=== PATIENT | male | born 1930 | race Caucasian/White ===

== ENCOUNTER 2016-11-10 10:32 | Day surgery (SDC) | payer OTHER, BC ==
[2016-10-26 14:20] VITALS: BMI 27.0
--- NOTE | 2016-10-26 14:56 | PAT Medication Instructions ---
Service Date Oct 26, 2016. Current Home Medication List Aspirin Enteric Coated (Ecotrin Or Generic *), 81 MG PO BID Carvedilol (Coreg *), 3.125 MG PO BID Diazepam (Valium), 5 MG PO HS Fluvastatin Ext Rel (Lescol Ext Rel), 80 MG PO QPM Lisinopril (Zestril), 40 MG PO BID Metformin Hcl (Glucophage), 500-1,000 MG PO BID Naproxen (Aleve), 220 MG PO PRN [Allerest 24 Hr], 1 TAB PO HS [Nasal Lavonia], 1 SPRAY [place] PRN Medication Instructions For Your Scheduled Surgery - Hold per surgeon's instructions: Naproxen (Aleve), 220 MG PO PRN Naproxen (Aleve), 220 MG PO PRN Aspirin Enteric Coated (Ecotrin Or Generic *), 81 MG PO BID - Hold the following medications 48 hours prior to surgery: Metformin Hcl (Glucophage), 500-1,000 MG PO BID - Hold the following medications 24 hours prior to surgery: Lisinopril (Zestril), 40 MG PO BID - Take the following medications the morning of surgery with a sip of water OTHERWISE NOTHING TO EAT OR DRINK AFTER MIDNIGHT: [Nasal Lavonia], 1 SPRAY [place] PRN Carvedilol (Coreg *), 3.125 MG PO BID - Take the following medications as scheduled the night before surgery: [Nasal Lavonia], 1 SPRAY [place] PRN [Allerest 24 Hr], 1 TAB PO HS Carvedilol (Coreg *), 3.125 MG PO BID Diazepam (Valium), 5 MG PO HS Fluvastatin Ext Rel (Lescol Ext Rel), 80 MG PO QPM If you have any questions please call us at [phone] or [phone] or [phone]
--- NOTE | 2016-10-26 15:44 | DIAGNOSTIC IMAGING REPORT ---
CHEST 2 VIEWS ROUTINE CLINICAL HISTORY: Preoperative chest COMPARISON STUDY: 04/23/2010 FINDINGS: There are postsurgical changes of midline sternotomy. The heart is normal in size. There is aortic valve replacement. There is persistent aortic tortuosity/ectasia. There is no failure. There is no focal pulmonary consolidation. There are no pleural effusions.[ IMPRESSION: No change the prior study. No acute findings. Electronically signed by: Moustapha Calix M.D. 10/26/2016 3:42 PM Dictated Date/Time: 10/26/2016 3:42 PM
[2016-10-26 15:55] LABS: BASO % 0.3 %; BASO ABS # 0.02 K/uL (0-0.2); COMPLETE YES; EOS % 2.7 %; HEMATOCRIT 37.8 % (42-52); IG% 0.1 %; LYMPH % 21.5 %; LYMPH ABS # 1.52 K/uL (1.2-3.4); MEAN CELL VOLUME 83.3 fL (80-100); MEAN CORPUSCULAR HEMOGLOBIN 28.9 pg (25-34); MEAN CORPUSCULAR HGB CONC 34.7 g/dl (32-36); MONO % 10.8 %; NEUT % 64.6 %; PLATELET COUNT 256 K/uL (130-400); RED BLOOD COUNT 4.54 M/uL (4.7-6.1); WHITE BLOOD COUNT 7.06 K/uL (4.8-10.8)
[2016-10-26 16:04] LABS: URINE APPEARANCE CLEAR (CLEAR); URINE BILIRUBIN NEG (NEG); URINE COLOR DK YELLOW; URINE NITRITE NEG (NEG); URINE SPECIFIC GRAVITY 1.026 (1.000-1.030); UROBILINOGEN NEG (NEG); ZZUR CULT IF INDIC CLEAN CATCH NO
[2016-10-26 16:07] LABS: MANUAL MICROSCOPIC REQUIRED? NO; REVIEW REQ? NO
[2016-10-26 16:09] LABS: INR 1.1 (0.9-1.1); PROTHROMBIN TIME (PATIENT) 11.6 SECONDS (9.0-12.0)
[2016-10-26 16:46] LABS: BUN/CREATININE RATIO 21.3 (10-20); CALCIUM 8.7 mg/dl (8.5-10.1); CREATININE 0.76 mg/dl (0.60-1.40); POTASSIUM 4.2 mmol/L (3.5-5.1)
--- NOTE | 2016-11-09 16:00 | HISTORY & PHYSICAL EXAMINATION ---
DATE OF ADMISSION: 11/10/2016 HISTORY OF PRESENT ILLNESS: The patient is a 5 foot 9, 181 pound, BMI 26.73, white male, 86 years old who presents with recent onset of rupture of his rotator cuff. He presents with complaints of pain and inability to lift his arm since his fall. He denies other shoulder injuries in the past. He has never had difficulty with the shoulder previously. 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 FAMILY HISTORY: Otherwise unremarkable. SOCIAL HISTORY: The patient denies history of alcohol use, smoking or recreational drug use. ALLERGIES: No known medical allergies are noted. MEDICATIONS: Aspirin 81 mg p.o. daily, Flovent 44 mcg aerosol inhaler as needed, carvedilol 3.25 mg orally 2 times daily, lisinopril 40 mg p.o. daily, diazepam 5 mg twice a day, metformin 500 mg p.o. every day with morning and evening meals. PAST MEDICAL HISTORY: Otherwise unremarkable. See history of present illness for pertinent positives. PHYSICAL EXAMINATION: GENERAL: Reveals a very pleasant 86-year-old white male with acute onset of a rupture of his rotator cuff, inability to lift his arm or abduct his arm and he presents for surgical intervention after failing attempts at physical therapy. HEAD, EYES, EARS, NOSE, AND THROAT: Otherwise unremarkable, atraumatic, normocephalic. HEART: Irregular at 72 beats per minute. No murmurs noted. LUNGS: Clear. No rales, rhonchi, or wheezes noted. ABDOMEN: Soft, nontender, nondistended. Bowel sounds are present in all 4 quadrants. RECTAL: Not performed. MUSCULOSKELETAL EXAMINATION: Consistent with that of a pleasant 86-year-old white male in excellent health and condition otherwise with complete acute rupture of his rotator cuff. He presents for arthroscopic rotator cuff repair, postoperative pain management, DVT prophylaxis, antibiotics as necessary.
[~2016-11-10] VITALS: Ht 175.3 cm; Wt 82.7 kg
--- NOTE | 2016-11-10 10:23 | History & Physical Bridge Note ---
H&P Re-Evaluation Bridge Note: I have examined the patient, reviewed the History & Physical and in the interval since the performance of the History & Physical I have noted the following changes of clinical significance: No changes noted
[~2016-11-10 10:32] MED LIST: ALLEREST PO; ASPEC81 PO; CEFAZOLIN 2000 MG/60 ML D5W 60 ML IV SCH; CRG3125 PO; DIAZ-165 PO; FLUV80TA PO; LACTATED RINGER'S 1000ML 1,000 ML IV SCH; LISI40TA PO; METF-384 PO; NAPR1TAB9 PO; NASAL SPRAY NAE; ROPIVACAINE 0.5% 5 MG/ML 30 ML VIAL ONE
[2016-11-10] MEDS ORDERED: LIDOCAINE HCL 2% 2 ML VIAL (20MG/ML) ONE ×2 (11:24→12:22)
[2016-11-10] MEDS ORDERED: ONDANSETRON INJ 2 MG/ML 2 ML VIAL ONE (11:24)
[2016-11-10] MEDS ORDERED: PROPOFOL IV EMULSION 10 MG/ML 20 ML VIAL IV ONE (11:24)
[2016-11-10] MEDS ORDERED: FENTANYL CITRATE INJ 50 MCG/1 ML 2 ML VIAL ONE (11:25)
[2016-11-10] MEDS ORDERED: MIDAZOLAM HCL 1 MG/ML 2ML VIAL ONE (11:25)
[2016-11-10 11:28] VITALS: BP 121/76; PULSE 67; TEMP 36.7; O2SAT 97; Ht 175.3 cm; Wt 82.7 kg
--- NOTE | 2016-11-10 12:15 | History & Physical Bridge Note ---
H&P Re-Evaluation Bridge Note: I have examined the patient, reviewed the History & Physical and in the interval since the performance of the History & Physical I have noted the following changes of clinical significance: The left shoulder is the correct shoulder for rotator cuff repair and distal clavicle spur excision
[2016-11-10] MEDS ORDERED: ONDANSETRON INJ 2 MG/ML 2 ML VIAL IV PRN ×2 (12:45→14:00)
[2016-11-10] MEDS ORDERED: HYDROmorphone INJ 1 MG/ML SYR IV PRN (12:45)
[2016-11-10] MEDS ORDERED: EpHEDrine SULFATE INJ 50 MG/ML AMP IV PRN (12:45)
[2016-11-10] MEDS ORDERED: ATROPINE SULFATE 0.1 MG/ML 5ML SYR IV PRN (12:45)
[2016-11-10] MEDS ORDERED: PHENYLEPHRINE 100MCG/ML 5ML SYR ONE (13:12)
[2016-11-10] MEDS ORDERED: NEOSTIGMINE METHYLSULFATE 5 MG/5 ML SYR ONE (13:12)
[2016-11-10] MEDS ORDERED: EpHEDrine SULFATE 50MG/5ML SYR ONE (13:12)
[2016-11-10] MEDS ORDERED: GLYCOPYRROLATE INJ 0.2 MG/ML VIAL ONE (13:12)
[2016-11-10] MEDS ORDERED: ROCURONIUM BROMIDE 10 MG/ML 5 ML VIAL ONE (13:12)
--- NOTE | 2016-11-10 13:52 | OPERATIVE REPORT ---
DATE OF OPERATION: 11/10/2016 PREOPERATIVE DIAGNOSIS: Torn rotator cuff, left shoulder. POSTOPERATIVE DIAGNOSIS: Torn rotator cuff, left shoulder, with impingement syndrome. PROCEDURE: Arthroscopy, arthroscopic acromioplasty, arthroscopic rotator cuff repair utilizing 4.5 mm double-loaded Healicoil anchor. SURGEON: Dr. Bean. GL[employer]OL BLANKET MACHINE FEEDER: BARTOLO Sandhu, who was necessary for arm positioning, suture management, and wound closure. HISTORY: The patient presents as a very pleasant 86-year-old male with the above complaints with sudden onset of weakness of his rotator cuff. He had previously never had problems with his shoulder. He had gone through physical therapy, presents with an acute tear of his rotator cuff which has been nonresponsive to conservative management. He is having night pain. Injections did not help nor did physical therapy, and for this reason, even at his advanced age of 86, decision was made for rotator cuff repair. At the time of surgery, the above findings were noted. PROCEDURE IN DETAIL: After proper prepping and draping of the left shoulder region, standard posterior and anterior portals were created. Arthroscopic examination revealed there to be evidence of an acute tear of the rotator cuff at supraspinatus tendon insertion. 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 The rotator cuff was subsequently mobilized. Anterior inferior acromioplasty was performed. The labrum was debrided all to a nice smooth stable margin. Rotator cuff was repaired back to a bed of bleeding bone utilizing a 4.5 mm double-loaded Healicoil anchor. The skin incisions were closed with 4-0 nylon. Sterile compression dressing was placed. The patient was taken to recovery room in stable condition. I attest to the content of the Intraoperative Record and any orders documented therein. Any exceptio ns are noted below.
[2016-11-10] MEDS ORDERED: ACETAMINOPHEN 325 MG TAB PO PRN (14:00)
[2016-11-10] MEDS ORDERED: MoRPHine SULFATE 2 MG/ML CARP IV PRN (14:00)
[2016-11-10] MEDS ORDERED: OXYCODONE HCL IR 5 MG TAB (IMMEDIATE RELEASE) PO PRN ×2 (14:00)
[2016-11-10] MEDS ORDERED: OXYC-57 PO (14:07)
--- NOTE | 2016-11-10 14:13 | Discharge Instructions ---
Discharge Instructions Date of Service Nov 10, 2016. Visit Reason for Visit: Left Shoulder Osteoarthritis, Rotator Cuff Tear Discharge Discharge Diagnosis / Problem: Left Shoulder Djd; Left Rotator Cuff Tear Discharge Goals Goal(s): Decrease discomfort, Improve function Activity Recommendations Activity Limitations: per Instructions/Follow-up section Anesthesia . Post Anesthesia Instructions: If you have had General Anesthesia or IV Sedation: * Do not drive today. * Resume driving when surgeon permits. * Do not make important decisions or sign legal documents today. * Call surgeon for: 1. Temperature elevations greater than 101 degrees F. 2. Uncontrollable pain. 3. Excessive bleeding. 4. Persistent nausea and vomiting. 5. Medication intolerance (nausea, vomiting or rash). * For nausea and vomiting use only clear liquids such as: tea, soda, bouillon until nausea subsides, then gradually increase diet as tolerated. * If you have any concerns or questions, call your surgeon's office. If physician is unavailable and it is an emergency, call 911 or go to the nearest emergency room. . Instructions / Follow-Up Instructions / Follow-Up RESUME YOU [facility]MIN TOMORROW. 11/10/16 [facility] [place] DISCHARGE INSTRUCTIONS: ROTATOR CUFF REPAIR SELF CARE INSTRUCTIONS A. You are permitted to loosen your sling/immobilizer to move your elbow, wrist , and hand to prevent stiffness. You should use your well arm (good arm) to assist the operated extremity when trying to raise the arm away from the body, hygiene purposes. Do NOT actively try to use/engage your shoulder muscles in operative arm at this time. You should NOT do overhead activity, lifting, or attempt to reach behind your back. B. You ARE to start Physical Therapy upon discharge. You will be provided a prescription for therapy with specific restrictions, if needed, at time of discharge. C. At 48 hours post-operatively, you may change your dressing. (Leave white steri-strips intact if present). Use band-aids and change daily. You are allowed to shower at this time and get the incision area wet, but DO NOT soak or submerge incision area in water. (No baths, swimming pools, hot tubs) D. Do NOT apply soap or any ointment/lotions directly over incision. E. You may use ice as needed to operative shoulder SPECIAL CARE INSTRUCTIONS: VERY IMPORTANT TO READ AND REVIEW A. There are a few signs you need to watch for after you are home. Call [facility] at [phone] if you experience any of the following: a. Increased severe shoulder pain. Some pain is expected especially when you exercise b. Increased swelling in your shoulder or arm; pain or swelling in either upper extremity. (Note: swelling and stiffness is normal and expected for several weeks post op, depending on type of shoulder surgery you had). c. Any fluid or drainage from the incision; redness of the incision. d. Shortness of breath or chest pain. B. Please call [facility] at [phone] if you have any questions or concerns about your operation or recovery. C. Call your physician if: a. Temperature is greater than 101 degrees (F). b. Pain is not relieved by prescribed pain medications. c. Increase drainage or redness from incision. d. Unanswered questions or concerns. D. Pain Medication: a. You will be prescribed pain medication upon discharge that should last till your first post-operative appointment. b. If you experience nausea and/or skin rash, discontinue this medication and contact our office for an alternative medication. c. Caution- narcotic pain medication can cause constipation. FOLLOW UP VISIT: Please call [facility] at [phone] to schedule a follow up appointment 10-14 days from your surgery date. Diet Recommendations Recommended Home Diet: resume previous diet Procedures Procedures Performed: Left Shoulder Arthroscopy With Rotator Cuff Repair, Debridement of Labral Tear Pending Studies Studies pending at discharge: no Medical Emergencies . Who to Call and When: Medical Emergencies: If at any time you feel your situation is an emergency, please call 911 immediately. . Non-Emergent Contact Non-Emergency issues call your: Surgeon Call Non-Emergent contact if: temperature is above 101.5, your pain is not controlled, your pain is worsening, wound has increased drainage, wound has increased redness . . "Provider Documentation" section prepared by Justino Leon. . [place] Drug Monitoring Program Search Results: patient reviewed within database, no issues identified
--- NOTE | 2016-11-10 14:54 | Anesthesiology Progress Note ---
Anesthesia Post Op Note Date & Time Nov 10, 2016 at 14:53 Vital Signs Pain Intensity: 0 Vital Signs Past 12 Hours Date Time Temp Pulse Resp B/P Pulse Ox O2 Delivery O2 Flow Rate FiO2 11/10/16 14:45 60 20 139/80 99 Nasal Cannula 3 11/10/16 14:35 36.3 20 143/69 99 Nasal Cannula 3 11/10/16 14:25 64 18 147/76 99 Nasal Cannula 3 11/10/16 14:15 65 16 151/89 99 Mask 5 11/10/16 14:05 61 16 147/89 99 Mask 10 11/10/16 13:58 36.0 63 16 134/81 99 Mask 10 11/10/16 11:28 36.7 67 18 121/76 97 Room Air Notes Mental Status: alert / awake / arousable, participated in evaluation Pt Amnestic to Procedure: Yes Nausea / Vomiting: adequately controlled Pain: adequately controlled Airway Patency, RR, SpO2: stable & adequate BP & HR: stable & adequate Hydration State: stable & adequate Anesthetic Complications: no major complications apparent
[2016-11-10 14:55] VITALS: BP 141/75; PULSE 58; TEMP 36.3; O2SAT 99
[2016-11-10 15:25] VITALS: BP 141/75; PULSE 48; TEMP 36.3; O2SAT 99
[2016-11-10 15:40] VITALS: BP 157/78; PULSE 63; TEMP 36.1; O2SAT 95
[2017-01-30] MEDS ORDERED: FLX5 PO (18:45)
[2017-01-30] MEDS ORDERED: IBUP-1427 PO (18:45)
== END 2016-11-10 16:03 | disposition home or self-care (01) ==
LOC: C.ACU 10:32
PROVIDERS: ATTEND Orthopaedic Surgery
DX: S46.012A Strain of muscle(s) and tendon(s) of the rotator cuff of left shoulder, initial encounter (principal); W19.XXXA Unspecified fall, initial encounter; M75.42 Impingement syndrome of left shoulder; I10 Essential (primary) hypertension; I25.10 Atherosclerotic heart disease of native coronary artery without angina pectoris; E11.9 Type 2 diabetes mellitus without complications; M19.90 Unspecified osteoarthritis, unspecified site; Z95.2 Presence of prosthetic heart valve; I25.2 Old myocardial infarction; M51.36 Other intervertebral disc degeneration, lumbar region; Z79.82 Long term (current) use of aspirin; Z79.899 Other long term (current) drug therapy; Z68.27 Body mass index [BMI] 27.0-27.9, adult

== ENCOUNTER 2017-01-29 07:16 | Inpatient (IN) | payer OTHER, BC ==
[~2017-01-29] VITALS: Ht 175.3 cm; Wt 73.2 kg
[~2017-01-29 07:16] MED LIST changes: -CEFAZOLIN 2000 MG/60 ML D5W 60 ML IV SCH; -LACTATED RINGER'S 1000ML 1,000 ML IV SCH; -NAPR1TAB9 PO; +OXYC-57 PO; -ROPIVACAINE 0.5% 5 MG/ML 30 ML VIAL ONE
--- NOTE | 2017-01-29 07:50 | EMERGENCY ROOM VISIT NOTE ---
History First contact with patient: 07:20 (Dipesh Pozo MD) First contact with patient: 07:20 (Aman Lozano D.O.) Chief Complaint: BACK PAIN Stated Complaint: BACK PAIN History of Present Illness The patient is a 86 year old male who presents to the Emergency Room with complaints of lower back pain. The patient woke up at 3am with 15/10 lower back pain, radiating to both legs, feeling like someone was stabbing him in the back with a knife. He has a history of multiple back surgeries with most recently a correction of a failed laminectomy by Dr. Olivarez in 2009. The patient does not recall any events yesterday that would have exacerbated his pain. He woke up from his sleep with the severe pain and was unable to get out of bed to open the door for the ambulance, stating it was the worst pain he has ever experienced. The patient denies any numbness, tingling, loss of function of his legs, fever, chills, loss of bowel or bladder function, or any other acute complaints. (Dipesh Pozo MD) Review of Systems See HPI for pertinent positives and negatives. A total of ten systems were reviewed and were otherwise negative. (Dipesh Pozo MD) Past Medical/Surgical History Medical Problems: (1) HTN (hypertension) Surgical Problems: (1) Aortic valve replaced (2) Hx of CABG (3) Previous back surgery (Aman Lozano D.O.) Social History Smoking Status: Never Smoker (Dipesh Pozo MD) Current/Historical Medications Scheduled Alendronate Sodium (Fosamax), 70 MG PO WK Aspirin (Aspirin Ec), 81 MG PO BID Carvedilol (Coreg), 1 TAB PO BID Diazepam (Valium), 5 MG PO HS Fexofenadine-Pseudoephedrine (Nimisha-D 24 Hour Allergy), 1 TAB PO DAILY Fluvastatin Ext Rel (Lescol Ext Rel), 80 MG PO QPM Lisinopril (Zestril), 20 MG PO BID Metformin Hcl (Glucophage), 1,000 MG PO BID Tamsulosin Hcl (Flomax), 0.4 MG PO HS Allergies Coded Allergies: No Known Allergies (Unverified , 4/19/17) Physical Exam Vital Signs Date Time Temp Pulse Resp B/P (MAP) Pulse Ox O2 Delivery O2 Flow Rate FiO2 01/29/17 07:31 36.8 66 18 143/93 94 Room Air (Aman Lozano D.O.) Physical Exam GENERAL: Awake, alert, well-appearing, in no distress HENT: Normocephalic, atraumatic. EYES: Normal conjunctiva. Sclera non-icteric. NECK: Supple. No nuchal rigidity. RESPIRATORY: Clear to auscultation. CARDIAC: Regular rate, normal rhythm. Extremities warm and well perfused. Pulses equal. ABDOMEN: Soft, non-distended. No tenderness to palpation. No rebound or guarding. No masses. RECTAL: Deferred. MUSCULOSKELETAL: Chest examination reveals no tenderness. Palpation of the lower back illicit pain response from the patient but unable to pinpoint exact location of tenderness, saying "lower back". Straight leg positive on right side. LOWER EXTREMITIES: Calves are equal size bilaterally and non-tender. No edema. No discoloration. NEURO: Normal sensorium. No sensory or motor deficits noted. SKIN: No rash or jaundice noted. (Dipesh Pozo MD) Medical Decision & Procedures Laboratory Results 01/29/17 08:19 Red Blood Count 4.34, Mean Corpuscular Volume 83.2, Mean Corpuscular Hemoglobin 28.8, Mean Corpuscular Hemoglobin Concent 34.6, Mean Platelet Volume 8.9, Neutrophils (%) (Auto) 70.3, Lymphocytes (%) (Auto) 13.0, Monocytes (%) (Auto) 13.0, Eosinophils (%) (Auto) 2.9, Basophils (%) (Auto) 0.2, Neutrophils # (Auto ) 6.73, Lymphocytes # (Auto) 1.24, Monocytes # (Auto) 1.24, Eosinophils # (Auto ) 0.28, Basophils # (Auto) 0.02 01/29/17 08:19 Test 01/29/17 08:19 White Blood Count 9.57 K/uL (4.8-10.8) Red Blood Count 4.34 M/uL (4.7-6.1) Hemoglobin 12.5 g/dL (14.0-18.0) Hematocrit 36.1 % (42-52) Mean Corpuscular Volume 83.2 fL (80-100) Mean Corpuscular Hemoglobin 28.8 pg (25-34) Mean Corpuscular Hemoglobin Concent 34.6 g/dl (32-36) Platelet Count 229 K/uL (130-400) Mean Platelet Volume 8.9 fL (7.4-10.4) Neutrophils (%) (Auto) 70.3 % Lymphocytes (%) (Auto) 13.0 % Monocytes (%) (Auto) 13.0 % Eosinophils (%) (Auto) 2.9 % Basophils (%) (Auto) 0.2 % Neutrophils # (Auto) 6.73 K/uL (1.4-6.5) Lymphocytes # (Auto) 1.24 K/uL (1.2-3.4) Monocytes # (Auto) 1.24 K/uL (0.11-0.59) Eosinophils # (Auto) 0.28 K/uL (0-0.5) Basophils # (Auto) 0.02 K/uL (0-0.2) RDW Standard Deviation 43.9 fL (36.4-46.3) RDW Coefficient of Variation 14.4 % (11.5-14.5) Immature Granulocyte % (Auto) 0.6 % Immature Granulocyte # (Auto) 0.06 K/uL (0.00-0.02) Anion Gap 8.0 mmol/L (3-11) Est Creatinine Clear Calc Drug Dose 61.8 ml/min Estimated GFR () 91.0 Estimated GFR (Non- 78.5 BUN/Creatinine Ratio 21.2 (10-20) Calcium Level 8.4 mg/dl (8.5-10.1) (Aman Lozano, D.O.) Medical Decision Patient is an 86 year old male that presents with lower back pain Etiologies such as lumbago, sciatica, cauda equina, epidural abscess, osteomyelitis, fracture, aortic disease, metastatic disease, infection, renal colic, gastrointestinal, as well as others were entertained. Imaging: CT Lumbar spine, X-Ray Pelvis Lab: CBC, PRP (Dipesh Pozo MD) differential considered includes cauda equina syndrome, conus medullaris, spinal cord compression syndrome, peripheral nerve compression, fractures or subluxations, intra-abdominal pathology such as abdominal aortic aneurysm or kidney stones, muscle strain, transverse myelitis, spinal cord injury. This is a an 86-year-old male who presents to the ED with a chief complaint of low back pain. The patient has a chronic history of low back issues, pain and surgeries. The patient states that he awoke this morning with severe back pain. He states that it is primarily in his back. It is worse with movement and movement of his legs. EMS provided IV fentanyl. He denies any bowel or bladder issues. A CT scan lumbar spine is noted above. There was no acute fractures. CBC and PRP are normal. The patient was given IV Toradol here. This is in addition to the IV fentanyl was given by EMS. The patient has continuing pain that is significantly worse with movement. He does not feel comfortable going home as he lives alone. His is currently in rehabilitation at [facility]. He does not want to go to [facility]. I spoke with the physician operations and intelligence assistant for Dr. Olivarez. She is familiar with the patient. She does not feel the patient is a surgical candidate. Recommended inpatient pain management and then rehabilitation. (Aman Lozano, D.O.) Impression Primary Impression: Low back pain Patient is an 86 year old male that presents with back pain - Patient currently comfortable with pain control but unable to walk without severe pain - Currently living status is alone at home - Discussed patient with PA of Dr. Olivarez and patient is known to [facility] - Due to living situation of patient and limited [facility] the patient to the [facility] for further evaluation and treatment (Dipesh Pozo MD) Departure Information Dispostion Being Evaluated By Hospitalist Condition GOOD Referrals Pedro Barfield D.OTree (PCP) Patient Instructions My [facility] Problem Qualifiers Primary Impression: Low back pain Chronicity: chronic Back pain laterality: bilateral Sciatica presence: unspecified whether sciatica present Qualified Codes: M54.5 - Low back pain; G89.29 - Other chronic pain
[2017-01-29 08:33] LABS: BASO % 0.2 %; BASO ABS # 0.02 K/uL (0-0.2); COMPLETE YES; EOS % 2.9 %; HEMATOCRIT 36.1 % (42-52); IG% 0.6 %; LYMPH ABS # 1.24 K/uL (1.2-3.4); MEAN CELL VOLUME 83.2 fL (80-100); MEAN CORPUSCULAR HEMOGLOBIN 28.8 pg (25-34); MEAN CORPUSCULAR HGB CONC 34.6 g/dl (32-36); MEAN PLATELET VOLUME 8.9 fL (7.4-10.4); NEUT % 70.3 %; PLATELET COUNT 229 K/uL (130-400); RED BLOOD COUNT 4.34 M/uL (4.7-6.1); WHITE BLOOD COUNT 9.57 K/uL (4.8-10.8)
--- NOTE | 2017-01-29 08:46 | DIAGNOSTIC IMAGING REPORT ---
PELVIS 1 OR 2 VIEW ROUTINE CLINICAL HISTORY: Low back and hip pain COMPARISON STUDY: None FINDINGS: No acute fractures are visualized. There are postsurgical changes present within the lumbar spine. Irregularity of the lateral aspect of the right iliac crest, is likely postsurgical. IMPRESSION: 1. No acute fractures. The joint space of each hip appears relatively well preserved for age 2. Postsurgical changes involving the right iliac bone and lumbar spine Electronically signed by: Moustapha Calix M.D. 01/29/2017 8:44 AM Dictated Date/Time: 01/29/2017 8:43 AM
[2017-01-29 08:50] LABS: BUN/CREATININE RATIO 21.2 (10-20); CALCIUM 8.4 mg/dl (8.5-10.1); CREATININE 0.89 mg/dl (0.60-1.40); POTASSIUM 4.4 mmol/L (3.5-5.1)
[2017-01-29] MEDS ORDERED: ALEN70TA4 PO (09:03)
[2017-01-29] MEDS ORDERED: CARV3.122 PO (09:03)
[2017-01-29] MEDS ORDERED: FEXO1TAB58 PO (09:03)
[2017-01-29] MEDS ORDERED: TAMS0.4C38 PO (09:03)
[2017-01-29] MEDS ORDERED: DIAZ-165 PO (09:03)
[2017-01-29] MEDS ORDERED: ASPI81TA28 PO (09:03)
[2017-01-29] MEDS ORDERED: LISI-725 PO (09:03)
--- NOTE | 2017-01-29 09:16 | DIAGNOSTIC IMAGING REPORT ---
CT LUMBAR SPINE WITHOUT CT DOSE: 613.79 mGy.cm CLINICAL HISTORY: Severe low back pain TECHNIQUE: Helical images were acquired in transverse plane. Reformatted sagittal and coronal images were reviewed. CONTRAST: No contrast was administered COMPARISON STUDY: 02/10/2010 FINDINGS: L1-2 level: There is a mild circumferential disc bulge. There is no significant spinal or foraminal stenosis L2-3 level: There are advanced degenerative changes with endplate erosive change. There is mild retrolisthesis of L2 on L3. There is a circumferential disc bulge. There is mild spinal canal narrowing. There is mild bilateral foraminal narrowing. There is an apparent lytic focus involving the right posterior aspect of the L2 vertebral body and pedicle. Is unclear whether this represents a true lesion, or pseudolesion with normal bone in the setting of vertebral body sclerosis. L3-4 level: There are postsurgical changes of a discectomy and interbody fusion. There are postlaminectomy changes present. There is no significant spinal stenosis. There is mild bilateral foraminal narrowing. L3 and L4 pedicle screws are visualized. L4-5 level: Postlaminectomy changes are visualized. There is no significant spinal stenosis. There is mild bilateral foraminal narrowing. L4 pedicle screws are visualized. There is a right L5 pedicle screw. L5-S1 level: There is a grade 1 spondylolisthesis of L5 on S1. S1 pedicle screws are visualized. There is no significant spinal stenosis. There is right-sided foraminal narrowing. The right S1 pedicle screw is fractured. There are bilateral L5 pars defects. There are old minor wedge deformities of the T12 and L1 vertebral bodies. No acute fractures are visualized. IMPRESSION: 1. Advanced multilevel spondylitic changes, progressive when compared the prior 2009 study 2. Postsurgical changes as described above. Fracture of the right S1 pedicle screw 3. No acute vertebral fractures or traumatic subluxations 4. Developing endplate erosive changes at the L2-3 level, likely degenerative 5. Mild spinal stenosis at the L2-3 level. 6. Mild bilateral foraminal narrowing at the L2-3, L3-4, and L4-5 levels. Right-sided foraminal narrowing at the L5-S1 level. 7. Bilateral L5 pars defects 8. 2 cm L2 lytic focus versus pseudolesion. Is unclear whether this represents a true lesion, or pseudolesion with normal bone in the setting of vertebral body sclerosis Electronically signed by: Moustapha Calix M.D. 01/29/2017 9:15 AM Dictated Date/Time: 01/29/2017 9:01 AM
[2017-01-29] MEDS ORDERED: KETOROLAC TROMETHAMINE 30 MG/ML VIAL IV STA (09:58)
--- NOTE | 2017-01-29 10:13 | EMERGENCY ROOM VISIT NOTE ---
History Report prepared by Adan: Everette Lewis Under the Supervision of: Dr. Aman Lozano D.O. First contact with patient: 07:20 Chief Complaint: BACK PAIN Stated Complaint: BACK PAIN History of Present Illness The patient is a 86 year old male who presents to the Emergency Room by EMS with complaints of improving lower back pain beginning 4.5 hours ago. He has a history of multiple back surgeries and has chronic back pain. He states that he suddenly developed intense pain during the night. The patient states rates his chronic back as a 4/10 in severity, but states that his pain today was a "15/10 " in severity. He states that he has never had pain this severe. The patient states that his pain radiated down both of his legs. He describes his pain as "stabbing". He also complains of bilateral hip pain. The patient denies any numbness, tingling, or loss of bowel or bladder continence. He notes that he recently had rotator cuff surgery. Source of History: patient Onset: 4.5 hours ago Position: back (lower) Symptom Intensity: "15/10" Quality: stabbing Timing: other (improving) Associated Symptoms: No numbness Note: The patient denies tingling, or loss of bowel or bladder continence. He also complains of bilateral hip pain. Review of Systems See HPI for pertinent positives & negatives. A total of 10 systems reviewed and were otherwise negative. Past Medical & Surgical Medical Problems: (1) HTN (hypertension) Surgical Problems: (1) Aortic valve replaced (2) Hx of CABG (3) Previous back surgery Family History No pertinent family history stated. Social History Smoking Status: Never Smoker Marital Status: Current/Historical Medications Scheduled Alendronate Sodium (Fosamax), 70 MG PO WK Aspirin (Aspirin Ec), 81 MG PO BID Carvedilol (Coreg), 1 TAB PO BID Diazepam (Valium), 5 MG PO HS Fexofenadine-Pseudoephedrine (Nimisha-D 24 Hour Allergy), 1 TAB PO DAILY Fluvastatin Ext Rel (Lescol Ext Rel), 80 MG PO QPM Lisinopril (Zestril), 20 MG PO BID Metformin Hcl (Glucophage), 1,000 MG PO BID Tamsulosin Hcl (Flomax), 0.4 MG PO HS Allergies Coded Allergies: No Known Allergies (Unverified , 11/10/16) Physical Exam Vital Signs Date Time Temp Pulse Resp B/P (MAP) Pulse Ox O2 Delivery O2 Flow Rate FiO2 01/29/17 10:10 64 18 161/80 95 Room Air 01/29/17 07:31 36.8 66 18 143/93 94 Room Air Physical Exam CONSTITUTIONAL/VITAL SIGNS: Reviewed / noted above. GENERAL: Non-toxic in appearance. INTEGUMENTARY: Warm, dry, and [place]. HEAD: Normocephalic. EYES: without scleral icterus or trauma. ENT/OROPHARYNX: clear and moist. LYMPHADENOPATHY/NECK: Is supple without lymphadenopathy or meningismus. RESPIRATORY: Lungs clear and equal. CARDIOVASCULAR: Regular rate and rhythm. GI/ABDOMEN: Soft and nontender. No organomegaly or pulsatile mass. No rebound or guarding. Normal bowel sounds. EXTREMITIES: Warm and well perfused. BACK: No CVA tenderness. Pain with movement as well as pain with movement of the hips. NEUROLOGICAL: Intact without focal deficits. PSYCHIATRIC: normal affect. MUSCULOSKELETAL: Normally developed with good muscle tone. Medical Decision & Procedures ER Provider Diagnostic Interpretation: Radiology results as stated below per my review and radiologist interpretation: CT LUMBAR SPINE WITHOUT FINDINGS: L1-2 level: There is a mild circumferential disc bulge. There is no significant spinal or foraminal stenosis L2-3 level: There are advanced degenerative changes with endplate erosive change. There is mild retrolisthesis of L2 on L3. There is a circumferential disc bulge. There is mild spinal canal narrowing. There is mild bilateral foraminal narrowing. There is an apparent lytic focus involving the right posterior aspect of the L2 vertebral body and pedicle. Is unclear whether this represents a true lesion, or pseudolesion with normal bone in the setting of vertebral body sclerosis. L3-4 level: There are postsurgical changes of a discectomy and interbody fusion. There are postlaminectomy changes present. There is no significant spinal stenosis. There is mild bilateral foraminal narrowing. L3 and L4 pedicle screws are visualized. L4-5 level: Postlaminectomy changes are visualized. There is no significant spinal stenosis. There is mild bilateral foraminal narrowing. L4 pedicle screws are visualized. There is a right L5 pedicle screw. L5-S1 level: There is a grade 1 spondylolisthesis of L5 on S1. S1 pedicle screws are visualized. There is no significant spinal stenosis. There is right-sided foraminal narrowing. The right S1 pedicle screw is fractured. There are bilateral L5 pars defects. There are old minor wedge deformities of the T12 and L1 vertebral bodies. No acute fractures are visualized. IMPRESSION: 1. Advanced multilevel spondylitic changes, progressive when compared the prior 2009 study 2. Postsurgical changes as described above. Fracture of the right S1 pedicle screw 3. No acute vertebral fractures or traumatic subluxations 4. Developing endplate erosive changes at the L2-3 level, likely degenerative 5. Mild spinal stenosis at the L2-3 level. 6. Mild bilateral foraminal narrowing at the L2-3, L3-4, and L4-5 levels. Right-sided foraminal narrowing at the L5-S1 level. 7. Bilateral L5 pars defects 8. 2 cm L2 lytic focus versus pseudolesion. Is unclear whether this represents a true lesion, or pseudolesion with normal bone in the setting of vertebral body sclerosis Electronically signed by: Moustapha Calix M.D. PELVIS 1 OR 2 VIEW ROUTINE FINDINGS: No acute fractures are visualized. There are postsurgical changes present within the lumbar spine. Irregularity of the lateral aspect of the right iliac crest, is likely postsurgical. IMPRESSION: 1. No acute fractures. The joint space of each hip appears relatively well preserved for age 2. Postsurgical changes involving the right iliac bone and lumbar spine Electronically signed by: Moustapha Calix M.D. Laboratory Results 01/29/17 08:19 Red Blood Count 4.34, Mean Corpuscular Volume 83.2, Mean Corpuscular Hemoglobin 28.8, Mean Corpuscular Hemoglobin Concent 34.6, Mean Platelet Volume 8.9, Neutrophils (%) (Auto) 70.3, Lymphocytes (%) (Auto) 13.0, Monocytes (%) (Auto) 13.0, Eosinophils (%) (Auto) 2.9, Basophils (%) (Auto) 0.2, Neutrophils # (Auto ) 6.73, Lymphocytes # (Auto) 1.24, Monocytes # (Auto) 1.24, Eosinophils # (Auto ) 0.28, Basophils # (Auto) 0.02 01/29/17 08:19 Test 01/29/17 08:19 White Blood Count 9.57 K/uL (4.8-10.8) Red Blood Count 4.34 M/uL (4.7-6.1) Hemoglobin 12.5 g/dL (14.0-18.0) Hematocrit 36.1 % (42-52) Mean Corpuscular Volume 83.2 fL (80-100) Mean Corpuscular Hemoglobin 28.8 pg (25-34) Mean Corpuscular Hemoglobin Concent 34.6 g/dl (32-36) Platelet Count 229 K/uL (130-400) Mean Platelet Volume 8.9 fL (7.4-10.4) Neutrophils (%) (Auto) 70.3 % Lymphocytes (%) (Auto) 13.0 % Monocytes (%) (Auto) 13.0 % Eosinophils (%) (Auto) 2.9 % Basophils (%) (Auto) 0.2 % Neutrophils # (Auto) 6.73 K/uL (1.4-6.5) Lymphocytes # (Auto) 1.24 K/uL (1.2-3.4) Monocytes # (Auto) 1.24 K/uL (0.11-0.59) Eosinophils # (Auto) 0.28 K/uL (0-0.5) Basophils # (Auto) 0.02 K/uL (0-0.2) RDW Standard Deviation 43.9 fL (36.4-46.3) RDW Coefficient of Variation 14.4 % (11.5-14.5) Immature Granulocyte % (Auto) 0.6 % Immature Granulocyte # (Auto) 0.06 K/uL (0.00-0.02) Anion Gap 8.0 mmol/L (3-11) Est Creatinine Clear Calc Drug Dose 61.8 ml/min Estimated GFR () 91.0 Estimated GFR (Non- 78.5 BUN/Creatinine Ratio 21.2 (10-20) Calcium Level 8.4 mg/dl (8.5-10.1) Laboratory results as stated above per my review. Medications Administered Medications (Trade) Dose Ordered Sig/Mavis Route Start Time Stop Time Status Last Admin Dose Admin Ketorolac Tromethamine (Toradol Inj) 30 mg NOW STAT IV 01/29/17 09:58 01/29/17 10:00 DC 01/29/17 10:42 30 MG ED Course 07: Previous medical records were reviewed. The patient was evaluated in room B7. A complete history and physical examination was performed. 0958: Ordered Toradol Inj 30 mg IV. 1008: On reevaluation, the patient is resting. I discussed the results and findings with him. He verbalized agreement of the treatment plan. [facility] The patient will be evaluated for further management and care. Medical Decision Differential considered includes cauda equina syndrome, conus medullaris, spinal cord compression syndrome, peripheral nerve compression, fractures or subluxations, intra-abdominal pathology such as abdominal aortic aneurysm or kidney stones, muscle strain, transverse myelitis, spinal cord injury. Patient was found to have a slightly elevated blood pressure due to circumstances. I do not believe that the patient requires hypertension monitoring. Medication Reconciliation: I attest that I have personally reviewed the patient' s current medication list. This is an 86-year-old male who presents to the ED with a chief complaint of low back pain. The patient has a history of multiple back surgeries done by Dr. Olivarez. The patient states that he has been fine up until this morning when he awoke and experienced increasing low back pain that is worse with movement. The patient received IV fentanyl by EMS. The patient's vital signs are stable. His physical exam reveals increased pain with any movement. When he attempts to sit up and better move, he developed low back pain. With movement of his legs, he developed low back pain. X-ray of the pelvis did not show any acute process. A CT scan lumbar region did not show any acute findings. There is multiple postsurgical findings but nothing appears acute. I spoke with the physician human resources executive assistant for Dr. Olivarez. The patient is not felt to have a surgical process. He likely requires inpatient physical therapy. He would like to [facility] where his is currently a patient. He does not want to go to [facility]. The patient was given IV Toradol here. Because of his continued pain, or throat spine feels that the patient should be admitted for pain management and they will consult with him. The patient will be seen by the hospitalist. Consults Time Called: [phone] Consulting Physician: Jia Ravi PA-C -Orthopedics Returned Call: [phone] Discussed the patient's case. Jia Ravi PA-C notes that her and Dr. Olivarez are very familiar with the patient She recommends that the patient be observed for pain management. Additional Consults: Time Called: [phone] Consulted Physician: Dr. Milo Blanco Returned Call: [phone] Additional Comments: Discussed the patient's case. The patient will be evaluated for further treatment and disposition. Impression Primary Impression: Acute exacerbation of chronic low back pain Scribe Attestation The scribe's documentation has been prepared under my direction and personally reviewed by me in its entirety. I confirm that the note above accurately reflects all work, treatment, procedures, and medical decision making performed by me. Departure Information Dispostion Being Evaluated By Hospitalist Referrals Pedro Barfield D.O. (PCP) Patient Instructions [facility]
[2017-01-29 10:45] VITALS: O2SAT 95; Ht 175.3 cm; Wt 73.2 kg
[2017-01-29] MEDS ORDERED: ACETAMINOPHEN 325 MG TAB PO PRN (12:00)
[2017-01-29] MEDS ORDERED: POLYETHYLENE (MIRALAX) 17 GM PACK PO PRN (12:00)
[2017-01-29] MEDS ORDERED: KETOROLAC TROMETHAMINE 15 MG/ML VIAL IV. PRN (12:00)
[2017-01-29] MEDS ORDERED: ONDANSETRON INJ 2 MG/ML 2 ML VIAL IV PRN (12:00)
[2017-01-29] MEDS ORDERED: MAGNESIUM HYDROXIDE SUSP 30 ML UDC PO PRN (12:00)
[2017-01-29] MEDS ORDERED: OXYCODONE HCL IR 5 MG TAB (IMMEDIATE RELEASE) PO PRN (12:00)
[2017-01-29] MEDS ORDERED: ALUMINUM/MAGNESIUM/SIMETH (MAALOX MAX) 30 ML UDC PO PRN (12:00)
[2017-01-29] MEDS ORDERED: MoRPHine SULFATE 2 MG/ML CARP IV PRN (12:00)
[2017-01-29 14:59] VITALS: BP 141/82; PULSE 76; TEMP 37.1; O2SAT 96
[2017-01-29 15:26] LABS: PROTHROMBIN TIME (PATIENT) 10.9 SECONDS (9.0-12.0)
--- NOTE | 2017-01-29 16:48 | History and Physical ---
History & Physical Date & Time of Service: Jan 29, 2017 at 16:44 Chief Complaint: Severe Low Back Pain Primary Care Physician: Pedro Barfield D.O. History of Present Illness Source: patient, hospital records has Bioprostheic Aortic valve, 86 Years old male with known past medical history of Hypertension, CAD S/P CABG, BPH, Diabetes, Back Surgery, Chronic back pain comes to ED with chief c/o worsening of his low back pain since last night without any fall/injury. Pain radiates to both the lower extremities and increases on ambulation.Pain is >10 on a pain scale of 0-10. Denies any new headache/weakness/numbness. Past Medical/Surgical History Medical Problems: (1) HTN (hypertension) Status: Chronic Surgical Problems: (1) Aortic valve replaced Status: Chronic (2) Hx of CABG Status: Resolved (3) Previous back surgery Status: Resolved Social History Smoking Status: Never Smoker Alcohol Use: none Drug Use: none Marital Status: Housing status: lives alone Immunizations History of Influenza Vaccine: No History of Tetanus Vaccine?: Yes History of Pneumococcal: Yes History of Hepatitis B Vaccine: No Allergies Coded Allergies: No Known Allergies (Unverified , 11/10/16) Home Medications Scheduled Alendronate Sodium (Fosamax), 70 MG PO WK Aspirin (Aspirin Ec), 81 MG PO BID Carvedilol (Coreg), 1 TAB PO BID Diazepam (Valium), 5 MG PO HS Fexofenadine-Pseudoephedrine (Nimisha-D 24 Hour Allergy), 1 TAB PO DAILY Fluvastatin Ext Rel (Lescol Ext Rel), 80 MG PO QPM Lisinopril (Zestril), 20 MG PO BID Metformin Hcl (Glucophage), 1,000 MG PO BID Tamsulosin Hcl (Flomax), 0.4 MG PO HS Review of Systems See HPI for pertinent positives & negatives. A total of 10 systems reviewed and were otherwise negative. Physical Exam Vital Signs Date Time Temp Pulse Resp B/P (MAP) Pulse Ox O2 Delivery O2 Flow Rate FiO2 01/29/17 15:55 Room Air 01/29/17 14:59 37.1 76 16 141/82 (101) 96 Room Air 01/29/17 13:00 64 18 129/96 96 Room Air 01/29/17 10:45 95 Room Air 01/29/17 10:10 64 18 161/80 95 Room Air 01/29/17 07:31 36.8 66 18 143/93 94 Room Air CONSTITUTIONAL/VITAL SIGNS: Reviewed / noted above. GENERAL: Non-toxic in appearance. Alert/Awake but in distress due to pain. INTEGUMENTARY: Warm, dry, and [place]. HEAD: Normocephalic. EYES: without scleral icterus or trauma. ENT/OROPHARYNX: clear and moist. LYMPHADENOPATHY/NECK: Is supple without lymphadenopathy or meningismus. RESPIRATORY: Lungs clear and equal. CARDIOVASCULAR: Regular rate and rhythm. GI/ABDOMEN: Soft and nontender. No organomegaly or pulsatile mass. No rebound or guarding. Normal bowel sounds. EXTREMITIES: Warm and well perfused. BACK: No CVA tenderness. Pain with movement as well as pain with movement of the hips. NEUROLOGICAL: Intact without focal deficits. PSYCHIATRIC: normal affect. MUSCULOSKELETAL: Normally developed with good muscle tone. Diagnostics Laboratory Results Results Past 24 Hours Test 01/29/17 08:19 Range/Units White Blood Count 9.57 4.8-10.8 K/uL Red Blood Count 4.34 4.7-6.1 M/uL Hemoglobin 12.5 14.0-18.0 g/dL Hematocrit 36.1 42-52 % Mean Corpuscular Volume 83.2 80-100 fL Mean Corpuscular Hemoglobin 28.8 25-34 pg Mean Corpuscular Hemoglobin Concent 34.6 32-36 g/dl Platelet Count 229 130-400 K/uL Mean Platelet Volume 8.9 7.4-10.4 fL Neutrophils (%) (Auto) 70.3 % Lymphocytes (%) (Auto) 13.0 % Monocytes (%) (Auto) 13.0 % Eosinophils (%) (Auto) 2.9 % Basophils (%) (Auto) 0.2 % Neutrophils # (Auto) 6.73 1.4-6.5 K/uL Lymphocytes # (Auto) 1.24 1.2-3.4 K/uL Monocytes # (Auto) 1.24 0.11-0.59 K/uL Eosinophils # (Auto) 0.28 0-0.5 K/uL Basophils # (Auto) 0.02 0-0.2 K/uL RDW Standard Deviation 43.9 36.4-46.3 fL RDW Coefficient of Variation 14.4 11.5-14.5 % Immature Granulocyte % (Auto) 0.6 % Immature Granulocyte # (Auto) 0.06 0.00-0.02 K/uL Prothrombin Time 10.9 9.0-12.0 SECONDS Prothromb Time International Ratio 1.0 0.9-1.1 Activated Partial Thromboplast Time 27.1 21.0-31.0 SECONDS Partial Thromboplastin Ratio 1.0 Sodium Level 135 136-145 mmol/L Potassium Level 4.4 3.5-5.1 mmol/L Chloride Level 102 98-107 mmol/L Carbon Dioxide Level 25 21-32 mmol/L Anion Gap 8.0 3-11 mmol/L Blood Urea Nitrogen 19 7-18 mg/dl Creatinine 0.89 0.60-1.40 mg/dl Est Creatinine Clear Calc Drug Dose 61.8 ml/min Estimated GFR () 91.0 Estimated GFR (Non- 78.5 BUN/Creatinine Ratio 21.2 10-20 Random Glucose 120 70-99 mg/dl Calcium Level 8.4 8.5-10.1 mg/dl Diagnostic Radiology PELVIS 1 OR 2 VIEW ROUTINE CLINICAL HISTORY: Low back and hip pain COMPARISON STUDY: None FINDINGS: No acute fractures are visualized. There are postsurgical changes present within the lumbar spine. Irregularity of the lateral aspect of the right iliac crest, is likely postsurgical. IMPRESSION: 1. No acute fractures. The joint space of each hip appears relatively well preserved for age 2. Postsurgical changes involving the right iliac bone and lumbar spine CT Lumbar Spine IMPRESSION: 1. Advanced multilevel spondylitic changes, progressive when compared the prior 2009 study 2. Postsurgical changes as described above. Fracture of the right S1 pedicle screw 3. No acute vertebral fractures or traumatic subluxations 4. Developing endplate erosive changes at the L2-3 level, likely degenerative 5. Mild spinal stenosis at the L2-3 level. 6. Mild bilateral foraminal narrowing at the L2-3, L3-4, and L4-5 levels.Right- sided foraminal narrowing at the L5-S1 level. 7. Bilateral L5 pars defects 8. 2 cm L2 lytic focus versus pseudolesion. Is unclear whether this represents a true lesion, or pseudolesion with normal bone in the setting of vertebral body sclerosis Impression Assessment and Plan Worsening of Chronic Low Back Pain: No known or reported trauma/fall/injury. Admit to Medical Floor. -Bed rest and out of bed with assistance only -Received Toradol in ER and will continue every 6 hourly as needed -Added Flexeril 5 mg BID and Percocet as needed -Warm compresses locally -PT/OT evaluation History CAD S/P CABG: Stable. No acute cardiac issue. -Continue home medications. History Diabetes Type II: Stable. -Monitor blood sugar and cover as per sliding scale History BPH: Stable. -Continue Flomax Hypercholesterolemia: Stable. Continue Statin. Code Status: FULL CODE DVT Prophylaxis: Sq Lovenox Disposition: Discharge once is clinically stable Level of Care Med/Surg Advanced Directives Existing Living Will: Yes Existing Power of General Forecaster: Yes Resuscitation Status FULL RESUSCITATION VTE Prophylaxis VTE Risk Assessment Done? Y/N: Yes Risk Level: Low Given or contraindicated: Enoxaparin (Lovenox)SQ
[2017-01-29] MEDS: CYCLOBENZAPRINE HCL 5 MG TAB PO SCH (20:06)
[2017-01-29] MEDS: LISINOPRIL 20 MG TAB PO SCH (20:06)
[2017-01-29] MEDS: CARVEDILOL 3.125 MG TAB PO SCH (20:07)
[2017-01-29] MEDS: ASPIRIN 81 MG ECTAB PO SCH (20:07)
[2017-01-29 20:10] VITALS: BP 126/86; PULSE 68
[2017-01-29] MEDS: DOCUSATE SODIUM 100 MG CAP PO SCH (20:10)
[2017-01-29] MEDS ORDERED: FLUVASTATIN SODIUM 80 MG PO SCH ×2 (21:00)
[2017-01-29] MEDS ORDERED: ENOXAPARIN 40 MG/0.4 ML SYR SQ SCH (21:00)
[2017-01-29] MEDS ORDERED: TAMSULOSIN HCL 0.4 MG CAP PO SCH (21:00)
[2017-01-29] MEDS ORDERED: DIAZEPAM 5MG TAB PO SCH (21:00)
[2017-01-29 23:19] VITALS: BP 126/85; PULSE 68; TEMP 36.9; O2SAT 96
[2017-01-30 06:50] VITALS: BP 115/76; PULSE 69; TEMP 37.1; O2SAT 94
[2017-01-30] MEDS: DOCUSATE SODIUM 100 MG CAP PO SCH (08:41)
[2017-01-30] MEDS: ASPIRIN 81 MG ECTAB PO SCH (08:42)
[2017-01-30] MEDS: CYCLOBENZAPRINE HCL 5 MG TAB PO SCH (08:42)
[2017-01-30] MEDS: CARVEDILOL 3.125 MG TAB PO SCH (08:42)
[2017-01-30] MEDS: LISINOPRIL 20 MG TAB PO SCH (08:42)
[2017-01-30 11:08] VITALS: BP 104/57; PULSE 63; O2SAT 96
[2017-01-30 14:58] VITALS: BP 110/69; PULSE 65; TEMP 36.5; O2SAT 96
--- NOTE | 2017-01-30 16:48 | Progress Note ---
Internal Med Progress Note Date of Service: Jan 30, 2017. Provider Documentation: SUBJECTIVE: Patient is feeling better today. back pain is tolerable. has been able to walk in hallway with assistance. No other new change or complaint. OBJECTIVE: Vital Signs-as noted below Examination: CONSTITUTIONAL/VITAL SIGNS: Reviewed / noted above. GENERAL: Non-toxic in appearance. Alert/Awake but in distress due to pain. INTEGUMENTARY: Warm, dry, and [place]. HEAD: Normocephalic. EYES: without scleral icterus or trauma. ENT/OROPHARYNX: clear and moist. LYMPHADENOPATHY/NECK: Is supple without lymphadenopathy or meningismus. RESPIRATORY: Lungs clear and equal. CARDIOVASCULAR: Regular rate and rhythm. GI/ABDOMEN: Soft and nontender. No organomegaly or pulsatile mass. No rebound or guarding. Normal bowel sounds. EXTREMITIES: Warm and well perfused. BACK: No CVA tenderness. Pain with movement as well as pain with movement of the hips. NEUROLOGICAL: Intact without focal deficits. PSYCHIATRIC: normal affect. MUSCULOSKELETAL: Normally developed with good muscle tone. Lab data as noted below. ASSESSMENT & PLAN: PELVIS 1 OR 2 VIEW ROUTINE CLINICAL HISTORY: Low back and hip pain COMPARISON STUDY: None FINDINGS: No acute fractures are visualized. There are postsurgical changes present within the lumbar spine. Irregularity of the lateral aspect of the right iliac crest, is likely postsurgical. IMPRESSION: 1. No acute fractures. The joint space of each hip appears relatively well preserved for age 2. Postsurgical changes involving the right iliac bone and lumbar spine CT Lumbar Spine IMPRESSION: 1. Advanced multilevel spondylitic changes, progressive when compared the prior 2009 study 2. Postsurgical changes as described above. Fracture of the right S1 pedicle screw 3. No acute vertebral fractures or traumatic subluxations 4. Developing endplate erosive changes at the L2-3 level, likely degenerative 5. Mild spinal stenosis at the L2-3 level. 6. Mild bilateral foraminal narrowing at the L2-3, L3-4, and L4-5 levels.Right- sided foraminal narrowing at the L5-S1 level. 7. Bilateral L5 pars defects 8. 2 cm L2 lytic focus versus pseudolesion. Is unclear whether this represents a true lesion, or pseudolesion with normal bone in the setting of vertebral body sclerosis Worsening of Chronic Low Back Pain: No known or reported trauma/fall/injury. Clinically better & pain is tolerable. -Bed rest and out of bed with assistance only -Received Toradol in ER and will continue every 6 hourly as needed -Continue Flexeril 5 mg BID and Percocet as needed -Warm compresses locally -PT/OT evaluation History CAD S/P CABG: Stable. No acute cardiac issue. -Continue home medications. History Diabetes Type II: Stable. -Monitor blood sugar and cover as per sliding scale History BPH: Stable. -Continue Flomax Hypercholesterolemia: Stable. Continue Statin. Code Status: FULL CODE DVT Prophylaxis: Sq Lovenox Disposition: Discharge once is clinically stable.Seems stable for discharge. Tried to call the daughter 2-3 times but she did not coal picker the phone. Patient wants to go home after discharge. Vital Signs: Date Time Temp Pulse Resp B/P (MAP) Pulse Ox O2 Delivery O2 Flow Rate FiO2 01/30/17 14:58 36.5 65 18 110/69 (83) 96 Room Air 01/30/17 11:08 63 96 01/30/17 08:00 Room Air 01/30/17 06:50 37.1 69 16 115/76 (89) 94 Room Air 01/29/17 23:25 Room Air 01/29/17 23:19 36.9 68 18 126/85 (99) 96 Room Air 01/29/17 20:10 68 126/86 (99)
[2017-01-30] MEDS ORDERED: FLX5 PO (18:45)
[2017-01-30] MEDS ORDERED: IBUP-1427 PO (18:45)
--- NOTE | 2017-01-30 18:48 | Discharge Instructions ---
Discharge Instructions Date of Service Jan 30, 2017. Admission Reason for Admission: Severe Low Back Pain Discharge Discharge Diagnosis / Problem: Increased Low Back Pain (Resolving) Discharge Goals Goal(s): Decrease discomfort, Improve function, Increase independence, Improve disease control, Learn about illness, Diagnostic testing Activity Recommendations Activity Limitations: resume your previous activity (Following Fall Precautions ) Lifting Limitations: gradually increase as tolerated Exercise/Sports Limitations: as tolerated Shower/Bathe: no limitations Avoid any bending and lifting so that you do not overstretch your lower back. . Instructions / Follow-Up Instructions / Follow-Up 1. Take the medications as directed. 2. Apply warm compresses (Heating pad or Hot water bottle) to the lower back few times a day 3. Avoid continuous standing and walking 4. Follow up with your PCP in 3-5 days after discharge. Current Hospital Diet Patient's current hospital diet: AHA Diet (Heart Healthy) Discharge Diet Recommended Diet: AHA Diet (Heart Healthy), Diabetes Type 2 Diet Pending Studies Studies pending at discharge: no Medical Emergencies . Who to Call and When: Medical Emergencies: If at any time you feel your situation is an emergency, please call 911 immediately. . Non-Emergent Contact Non-Emergency issues call your: Primary Care Provider . . "Provider Documentation" section prepared by Feng Doshi. . VTE Core Measure Inpt VTE Proph given/why not?: Enoxaparin (Lovenox)SQ
--- NOTE | 2017-01-30 18:50 | Discharge Summary ---
Discharge Summary Date of Service Jan 30, 2017. Discharge Summary Admission Date: Jan 29, 2017 at 12:32 Discharge Date: Jan 30, 2017 Discharge Disposition: Home with services Principal Diagnosis: Increased Chronic Low Back pain Secondary Diagnoses/Problems: Hypertension BPH Diabetes Type II Hypercholesterolemia Procedures: NONE Vaccinations: NONE Consultations: PT/OT Evaluation Pending Studies/Follow-Up: NONE Medication Reconciliation New Medications: Ibuprofen Tab (Motrin) 600 Mg Tab 1 TAB PO TID for back pain for 10 Days, #30 TAB Cyclobenzaprine HCl (Cyclobenzaprine HCl) 5 Mg Tab 5 MG PO BID, #20 TAB Continued Medications: Alendronate Sodium (Fosamax) 70 Mg Tab 70 MG PO WK, TAB Aspirin (Aspirin Ec) 81 Mg Tab 81 MG PO BID Carvedilol (Coreg) 3.125 Mg Tab 1 TAB PO BID for 30 Days, #60 TAB 3 Refills Diazepam (Valium) 5 Mg Tab 5 MG PO HS, TAB Fexofenadine-Pseudoephedrine (Nimisha-D 24 Hour Allergy) 1 Tab Tab 1 TAB PO DAILY for 30 Days, #30 TAB Fluvastatin Ext Rel (Lescol Ext Rel) 80 Mg Tab 80 MG PO QPM, TAB Lisinopril (Zestril) 20 Mg Tab 20 MG PO BID, TAB Metformin Hcl (Glucophage) 1,000 Mg Tab 1000 MG PO BID, TAB Tamsulosin Hcl (Flomax) 0.4 Mg Cap 0.4 MG PO HS, CAP Admission Information HPI (per Admitting provider): has Bioprostheic Aortic valve, 86 Years old male with known past medical history of Hypertension, CAD S/P CABG, BPH, Diabetes, Back Surgery, Chronic back pain comes to ED with chief c/o worsening of his low back pain since last night without any fall/injury. Pain radiates to both the lower extremities and increases on ambulation.Pain is >10 on a pain scale of 0-10. Denies any new headache/weakness/numbness. Physical Exam (per Admitting): CONSTITUTIONAL/VITAL SIGNS: Reviewed / noted above. GENERAL: Non-toxic in appearance. Alert/Awake but in distress due to pain. INTEGUMENTARY: Warm, dry, and [place]. HEAD: Normocephalic. EYES: without scleral icterus or trauma. ENT/OROPHARYNX: clear and moist. LYMPHADENOPATHY/NECK: Is supple without lymphadenopathy or meningismus. RESPIRATORY: Lungs clear and equal. CARDIOVASCULAR: Regular rate and rhythm. GI/ABDOMEN: Soft and nontender. No organomegaly or pulsatile mass. No rebound or guarding. Normal bowel sounds. EXTREMITIES: Warm and well perfused. BACK: No CVA tenderness. Pain with movement as well as pain with movement of the hips. NEUROLOGICAL: Intact without focal deficits. PSYCHIATRIC: normal affect. MUSCULOSKELETAL: Normally developed with good muscle tone. Hospital Course PELVIS 1 OR 2 VIEW ROUTINE CLINICAL HISTORY: Low back and hip pain COMPARISON STUDY: None FINDINGS: No acute fractures are visualized. There are postsurgical changes present within the lumbar spine. Irregularity of the lateral aspect of the right iliac crest, is likely postsurgical. IMPRESSION: 1. No acute fractures. The joint space of each hip appears relatively well preserved for age 2. Postsurgical changes involving the right iliac bone and lumbar spine CT Lumbar Spine IMPRESSION: 1. Advanced multilevel spondylitic changes, progressive when compared the prior 2009 study 2. Postsurgical changes as described above. Fracture of the right S1 pedicle screw 3. No acute vertebral fractures or traumatic subluxations 4. Developing endplate erosive changes at the L2-3 level, likely degenerative 5. Mild spinal stenosis at the L2-3 level. 6. Mild bilateral foraminal narrowing at the L2-3, L3-4, and L4-5 levels.Right- sided foraminal narrowing at the L5-S1 level. 7. Bilateral L5 pars defects 8. 2 cm L2 lytic focus versus pseudolesion. Is unclear whether this represents a true lesion, or pseudolesion with normal bone in the setting of vertebral body sclerosis Worsening of Chronic Low Back Pain: No known or reported trauma/fall/injury. Clinically better & pain is tolerable. -Bed rest and out of bed with assistance only -Received Toradol in ER and will continue every 6 hourly as needed -Continue Flexeril 5 mg BID and Percocet as needed -Warm compresses locally -PT/OT evaluation History CAD S/P CABG: Stable. No acute cardiac issue. -Continue home medications. History Diabetes Type II: Stable. -Monitor blood sugar and cover as per sliding scale History BPH: Stable. -Continue Flomax Hypercholesterolemia: Stable. Continue Statin. Code Status: FULL CODE DVT Prophylaxis: Sq Lovenox Disposition: Discharge once is clinically stable.Seems stable for discharge. Tried to call the daughter 2-3 times but she did not garbage pick up man the phone. Patient wants to go home after discharge. Total time spent on discharge =35 minute This includes examination of the patient, discharge planning, medication reconciliation, and communication with other providers. Discharge Instructions Discharge Goals Goal(s): Decrease discomfort, Improve function, Increase independence, Improve disease control, Learn about illness, Diagnostic testing Activity Recommendations Activity Limitations: resume your previous activity (Following Fall Precautions ) Lifting Limitations: gradually increase as tolerated Exercise/Sports Limitations: as tolerated Shower/Bathe: no limitations Avoid any bending and lifting so that you do not overstretch your lower back. . Instructions / Follow-Up Instructions / Follow-Up 1. Take the medications as directed. 2. Apply warm compresses (Heating pad or Hot water bottle) to the lower back few times a day 3. Avoid continuous standing and walking 4. Follow up with your PCP in 3-5 days after discharge. Current Hospital Diet Patient's current hospital diet: AHA Diet (Heart Healthy) Discharge Diet Recommended Diet: AHA Diet (Heart Healthy), Diabetes Type 2 Diet
[2017-01-30 18:59] VITALS: BP 143/81; PULSE 69; TEMP 36.7; O2SAT 95
== END 2017-01-30 19:30 | disposition home or self-care (01) | DRG 552 ==
LOC: EDBD 07:16 → C.EDB 07:17 → C.MSW 12:32 → EDBEDREQ 12:41 → ENRESERV 13:00
PROVIDERS: ADMIT Emergency Medicine; ATTEND Emergency Medicine
DX: M54.5 Low back pain (principal); G89.29 Other chronic pain; I10 Essential (primary) hypertension; I25.10 Atherosclerotic heart disease of native coronary artery without angina pectoris; N40.0 Benign prostatic hyperplasia without lower urinary tract symptoms; E11.9 Type 2 diabetes mellitus without complications; E78.00 Pure hypercholesterolemia, unspecified; Z95.2 Presence of prosthetic heart valve; Z95.1 Presence of aortocoronary bypass graft; Z79.82 Long term (current) use of aspirin; Z79.899 Other long term (current) drug therapy; Z79.84 Long term (current) use of oral hypoglycemic drugs

== ENCOUNTER 2017-12-18 07:55 | Emergency (ER) | payer OTHER, BC ==
[~2017-12-18] VITALS: Ht 175.3 cm; Wt 80.0 kg
[~2017-12-18 07:55] MED LIST changes: -ALLEREST PO; -ASPEC81 PO; +ASPI81TA28 PO; +CARV3.122 PO; -CRG3125 PO; +FEXO1TAB58 PO; +LISI-725 PO; -LISI40TA PO; -NASAL SPRAY NAE; -OXYC-57 PO; +TAMS0.4C38 PO
[2017-12-18 08:03] VITALS: TEMP 36.8; Ht 175.3 cm; Wt 80.0 kg
--- NOTE | 2017-12-18 08:28 | EMERGENCY ROOM VISIT NOTE ---
History Report prepared by Adan: Ivonne Cuenca Under the Supervision of: Dr. Michael Bolaños M.D. First contact with patient: 08:14 Chief Complaint: OTHER COMPLAINT Stated Complaint: BACK PAIN History of Present Illness The patient is a 87 year old male who presents to the Emergency Room with complaints of constant dizziness beginning last night. He describes his sensation as "a funny feeling in his head" and states he feels like he is spinning. Closing his eyes worsens this feeling. He has nausea and SOB when he closes his eyes but denies a headache, vomiting, diarrhea, hematochezia, chest pain, SI, HI, anxiety, excessive sadness, or smoking. No fevers or chills. Source of History: patient Onset: last night Position: head, other (upper and lower extremities) Quality: other (spinning and a "funny feeling in his head") Timing: constant Modifying Factors (Worsening): other (closing his eyes) Associated Symptoms: + SOB (when he closes his eyes), + nausea (when he closes his eyes), No headache, No chest pain, No vomiting, No hematochezia, No diarrhea Note: Negative SI, excessive sadness, or smoking Review of Systems See HPI for pertinent positives and negatives. A total of ten systems were reviewed and were otherwise negative. Past Medical & Surgical Medical Problems: (1) HTN (hypertension) (2) Severe low back pain Surgical Problems: (1) Aortic valve replaced (2) Hx of CABG (3) Previous back surgery Family History Patient reports no known family medical history. Social History Smoking Status: Never Smoker Drug Use: none Marital Status: Occupation Status: retired Current/Historical Medications Scheduled Aspirin (Aspirin Ec), 81 MG PO BID Carvedilol (Coreg), 1 TAB PO BID Diazepam (Valium), 5 MG PO HS Fexofenadine-Pseudoephedrine (Nimisha-D 24 Hour Allergy), 1 TAB PO HS Fluvastatin Ext Rel (Lescol Ext Rel), 80 MG PO QPM Lisinopril (Zestril), 20 MG PO BID Metformin Hcl (Glucophage), 1,000 MG PO BID Tamsulosin Hcl (Flomax), 0.4 MG PO HS Scheduled PRN Meclizine HCl (Meclizine HCl), 1 TAB PO TID PRN for Dizziness or Vertigo Allergies Coded Allergies: No Known Allergies (Unverified , 12/18/17) Physical Exam Vital Signs Date Time Temp Pulse Resp B/P (MAP) Pulse Ox O2 Delivery O2 Flow Rate FiO2 12/18/17 11:20 64 24 158/96 97 12/18/17 10:23 64 24 158/96 97 Room Air 12/18/17 08:56 60 138/90 95 12/18/17 08:41 97 Room Air 12/18/17 08:09 58 12/18/17 08:03 36.8 62 24 130/79 94 Room Air Physical Exam Physical Exam GENERAL: He is oriented to person, place, and time. He appears well-developed and well-nourished. He does not appear distressed. ____ HENT: Exam performed. Head: Normocephalic and atraumatic. Right Ear: External ear normal. No mastoid tenderness. Left Ear: External ear normal. No mastoid tenderness. Mouth/Throat: The oropharynx is clear and moist. No trismus in the jaw. No dental abscesses or uvula swelling. No oropharyngeal exudate or tonsillar abscesses. ____ EYES: Conjunctivae and EOM are normal. Pupils are equal, round, and reactive to light. Right eye exhibits no discharge. Left eye exhibits no discharge. No scleral icterus. ____ NECK: Normal range of motion. Neck supple. No JVD present. No spinous process tenderness present. No carotid bruit present. No rigidity. No tracheal deviation and normal range of motion present. No Brudzinski's sign and no Kernig 's sign noted. ____ CV: Normal rate, regular rhythm, normal heart sounds and intact distal pulses. There is no peripheral edema. Palpable radial pulses bue. ____ PULM/CHEST: Effort normal and breath sounds normal. No respiratory distress. No stridor. He has no wheezes. He has no rales. Chest Wall: He exhibits no tenderness. ____ ABD: The abdomen is soft. Bowel sounds are normal. He has no distension. No mass is present. There is no tenderness. There is no rebound, no guarding, no Perales's sign and no tenderness at McBurney's point. Rovsig negative MUSC/SKEL: Normal range of motion. There is no peripheral edema, tenderness or deformity. LYMPH: No cervical adenopathy. ____ NEURO: He is alert and oriented to person, place, and time. He has normal strength. No cranial nerve deficit or sensory deficit. Coordination and gait normal. GCS eye subscore is 4. GCS verbal subscore is 5. GCS motor subscore is 6. Cerebellar tests wnl. ____ SKIN: Skin is warm and dry. He is not diaphoretic. ____ PSYCH: He has a normal mood and affect. His behavior is normal. Judgment and thought content normal. ____ Medical Decision & Procedures ER Provider Diagnostic Interpretation: Radiology results as stated below per my review and radiologist interpretation: CT OF THE HEAD WITHOUT CONTRAST CLINICAL HISTORY: Headache and dizziness. COMPARISON STUDY: Head CT November 12, 2017. CT DOSE: 537.48 mGy.cm TECHNIQUE: Helical axial images of the head were obtained without IV contrast. Automated exposure control was utilized for the study. A dose lowering technique was utilized adhering to the principles of ALARA. FINDINGS: No acute intracranial hemorrhage, midline shift or mass effect is present. Ventricular system is stable. Basilar cisterns are patent. There are no extra-axial collections. There are no findings to suggest acute dural sinus thrombosis or acute territorial infarct. A possible tiny old lacunar infarct within the right cerebellar hemisphere is noted. White matter hypodensities suggest mild small vessel disease. There are no significant calvarial abnormalities. There is mild ethmoid sinus mucosal thickening. Trace bilateral mastoid fluid is noted. IMPRESSION: No acute intracranial findings. Electronically signed by: Stephen Trujillo M.D. 12/18/2017 9:09 AM Laboratory Results 12/18/17 08:35 Red Blood Count 4.17, Mean Corpuscular Volume 85.1, Mean Corpuscular Hemoglobin 30.2, Mean Corpuscular Hemoglobin Concent 35.5, Mean Platelet Volume 9.3, Neutrophils (%) (Auto) 66.8, Lymphocytes (%) (Auto) 17.3, Monocytes (%) (Auto) 13.3, Eosinophils (%) (Auto) 2.0, Basophils (%) (Auto) 0.4, Neutrophils # (Auto ) 3.35, Lymphocytes # (Auto) 0.87, Monocytes # (Auto) 0.67, Eosinophils # (Auto ) 0.10, Basophils # (Auto) 0.02 12/18/17 08:35 Test 12/18/17 08:35 White Blood Count 5.02 K/uL (4.8-10.8) Red Blood Count 4.17 M/uL (4.7-6.1) Hemoglobin 12.6 g/dL (14.0-18.0) Hematocrit 35.5 % (42-52) Mean Corpuscular Volume 85.1 fL (80-100) Mean Corpuscular Hemoglobin 30.2 pg (25-34) Mean Corpuscular Hemoglobin Concent 35.5 g/dl (32-36) Platelet Count 242 K/uL (130-400) Mean Platelet Volume 9.3 fL (7.4-10.4) Neutrophils (%) (Auto) 66.8 % Lymphocytes (%) (Auto) 17.3 % Monocytes (%) (Auto) 13.3 % Eosinophils (%) (Auto) 2.0 % Basophils (%) (Auto) 0.4 % Neutrophils # (Auto) 3.35 K/uL (1.4-6.5) Lymphocytes # (Auto) 0.87 K/uL (1.2-3.4) Monocytes # (Auto) 0.67 K/uL (0.11-0.59) Eosinophils # (Auto) 0.10 K/uL (0-0.5) Basophils # (Auto) 0.02 K/uL (0-0.2) RDW Standard Deviation 42.5 fL (36.4-46.3) RDW Coefficient of Variation 13.7 % (11.5-14.5) Immature Granulocyte % (Auto) 0.2 % Immature Granulocyte # (Auto) 0.01 K/uL (0.00-0.02) Anion Gap 6.0 mmol/L (3-11) Est Creatinine Clear Calc Drug Dose 73.0 ml/min Estimated GFR () 97.5 Estimated GFR (Non- 84.1 BUN/Creatinine Ratio 17.5 (10-20) Calcium Level 8.5 mg/dl (8.5-10.1) Magnesium Level 1.5 mg/dl (1.8-2.4) Troponin I 0.022 ng/ml (0-0.045) Laboratory results reviewed by me Medications Administered Medications (Trade) Dose Ordered Sig/Mavis Route Start Time Stop Time Status Last Admin Dose Admin Meclizine HCl (Antivert Tab) 25 mg NOW STAT PO 12/18/17 09:12 12/18/17 09:14 DC 12/18/17 09:20 25 MG Magnesium Sulfate 100 ml @ 100 mls/hr NOW STAT IV 12/18/17 09:12 12/18/17 10:11 DC 12/18/17 09:20 100 MLS/HR Lorazepam (Ativan Inj) 0.5 mg NOW STAT IV 12/18/17 10:19 12/18/17 10:25 DC 12/18/17 10:35 0.5 MG ECG Per My Interpretation Indication: other (dizziness) Rate (beats per minute): 59 Rhythm: sinus bradycardia Findings: 1st degree AV block, PVC, T-wave inversion (V3, V4, V5, V6, AVL), other (WA interval is 212, QRS and QTC are normal, no ST elevation or depression , ) Comparison ECG Date: 10/2017 Change: T-wave inversion in lead V3 is new. T-wave inversion in AVL and V3-V6 is old. ED Course 0816: The patient was evaluated in room B2. A complete history and physical exam was performed. 0910: I checked on the patient at this time. He was resting comfortably. 0912: Labs within normal limits with exception of magnesium of 1.5. Ordered Magnesium Sulfate 100 ml @ 100 mls/hr IV, Antivert Tab 25 mg PO 1021: Vitals are stable. Labs and imaging within normal limits. He is ambulating with walker at baseline as he usually uses a walker, ambulating without difficulty. He states he feels better after receiving the Antivert. We will discharge into the care of his family. Patient continues to report no chest pain, shortness of breath at this time. DISCHARGE - Plan of care discussed with patient and questions answered. The patient was given both verbal and printed discharge instructions. The patient verbalized understanding and ability to comply. The patient is to seek outpatient follow up as noted in the discharge instructions. The patient verbalized understanding and ability to comply. The patient is discharged in stable condition. The patient was instructed to return for worsening symptoms. Medical Decision Vitals are stable. Labs and imaging within normal limits. He is ambulating with walker at baseline as he usually uses a walker, ambulating without difficulty. He states he feels better after receiving the Antivert. We will discharge into the care of his family. Patient continues to report no chest pain, shortness of breath at this time. DISCHARGE - Plan of care discussed with patient and questions answered. The patient was given both verbal and printed discharge instructions. The patient verbalized understanding and ability to comply. The patient is to seek outpatient follow up as noted in the discharge instructions. The patient verbalized understanding and ability to comply. The patient is discharged in stable condition. The patient was instructed to return for worsening symptoms. Medication Reconcilliation Current Medication List: was personally reviewed by me Blood Pressure Screening Patient's blood pressure: Normal blood pressure Blood pressure disposition: Did not require urgent referral Impression Primary Impression: Vertigo Scribe Attestation The scribe's documentation has been prepared under my direction and personally reviewed by me in its entirety. I confirm that the note above accurately reflects all work, treatment, procedures, and medical decision making performed by me. The chart was completed utilizing [employer] Speech voice recognition software. Grammatical errors, random word insertions, pronoun errors, and incomplete sentences are an occasional consequence of this system due to software limitations, ambient noise, and hardware issues. Any formal questions or concerns about the content, text, or information contained within the body of this dictation should be directly addressed to the physician for clarification. Departure Information Dispostion Home / Self-Care Prescriptions Meclizine HCl (Meclizine HCl) 12.5 Mg Tab 1 TAB PO TID Y for Dizziness or Vertigo for 10 Days, #30 TAB Prov: Michael Bolaños M.D. 12/18/17 Referrals Pedro Barfield D.O. (PCP) Forms HOME CARE DOCUMENTATION FORM, IMPORTANT VISIT INFORMATION, WORK / SCHOOL INSTRUCTIONS Patient Instructions My [facility]
[2017-12-18 08:41] VITALS: O2SAT 97
[2017-12-18 08:53] LABS: BASO % 0.4 %; BASO ABS # 0.02 K/uL (0-0.2); HEMATOCRIT 35.5 % (42-52); HEMOGLOBIN 12.6 g/dL (14.0-18.0); IG# 0.01 K/uL (0.00-0.02); LYMPH % 17.3 %; LYMPH ABS # 0.87 K/uL (1.2-3.4); MEAN CELL VOLUME 85.1 fL (80-100); MEAN CORPUSCULAR HEMOGLOBIN 30.2 pg (25-34); MEAN CORPUSCULAR HGB CONC 35.5 g/dl (32-36); MEAN PLATELET VOLUME 9.3 fL (7.4-10.4); MONO % 13.3 %; MONO ABS # 0.67 K/uL (0.11-0.59); NEUT % 66.8 %; NEUT ABS # 3.35 K/uL (1.4-6.5); PLATELET COUNT 242 K/uL (130-400); RED CELL DISTRIBUTION WIDTH CV 13.7 % (11.5-14.5); RED CELL DISTRIBUTION WIDTH SD 42.5 fL (36.4-46.3); WHITE BLOOD COUNT 5.02 K/uL (4.8-10.8)
[2017-12-18 09:07] LABS: CALCIUM 8.5 mg/dl (8.5-10.1); CREATININE 0.74 mg/dl (0.60-1.40); POTASSIUM 4.1 mmol/L (3.5-5.1)
--- NOTE | 2017-12-18 09:11 | DIAGNOSTIC IMAGING REPORT ---
CT OF THE HEAD WITHOUT CONTRAST CLINICAL HISTORY: Headache and dizziness. COMPARISON STUDY: Head CT November 12, 2017. CT DOSE: 537.48 mGy.cm TECHNIQUE: Helical axial images of the head were obtained without IV contrast. Automated exposure control was utilized for the study. A dose lowering technique was utilized adhering to the principles of ALARA. FINDINGS: No acute intracranial hemorrhage, midline shift or mass effect is present. Ventricular system is stable. Basilar cisterns are patent. There are no extra-axial collections. There are no findings to suggest acute dural sinus thrombosis or acute territorial infarct. A possible tiny old lacunar infarct within the right cerebellar hemisphere is noted. White matter hypodensities suggest mild small vessel disease. There are no significant calvarial abnormalities. There is mild ethmoid sinus mucosal thickening. Trace bilateral mastoid fluid is noted. IMPRESSION: No acute intracranial findings. Electronically signed by: Stephen Trujillo M.D. 12/18/2017 9:09 AM Dictated Date/Time: 12/18/2017 9:07 AM
[2017-12-18] MEDS ORDERED: MAGNESIUM SULFATE 1GM / D5W 100 ML IV STA (09:12)
[2017-12-18] MEDS ORDERED: MECLIZINE HCL 25 MG TAB PO STA (09:12)
[2017-12-18] MEDS ORDERED: LORAZEPAM 2 MG/ML 1 ML VIAL IV STA (10:19)
[2017-12-18] MEDS ORDERED: MECL1TAB40 PO (11:03)
[2017-12-18 11:20] VITALS: BP 158/96; PULSE 64; O2SAT 97
== END 2017-12-18 11:31 | disposition home or self-care (01) ==
LOC: EDBD 07:55 → C.EDB 07:56
DX: R42 Dizziness and giddiness (principal); I10 Essential (primary) hypertension; Z79.82 Long term (current) use of aspirin; Z79.84 Long term (current) use of oral hypoglycemic drugs; Z79.899 Other long term (current) drug therapy